=== PATIENT | female | born 1960 | race American Indian/Alaskan Native ===

== ENCOUNTER 2021-01-31 09:47 | Outpatient (CLI) | payer OTHER ==
--- NOTE | 2021-01-31 17:56 | Mammography Report ---
DIGITAL DIAGNOSTIC MAMMOGRAM WITH CAD , 01/31/2021 CLINICAL INFORMATION / INDICATION: Abnormal outside mammogram. Outside mammogram dated 09/25/2020 descr ibed an asymmetry in the right breast. A single screen saver of the abnormality in question showed a cervical demarcating a benign-appearing nodule in the superior right breast. Nothing was marked on th e cc view. TECHNIQUE: Digital right mammographic imaging was performed. This examination was interpreted with the benefit of Computer-aided Detection analysis. COMPARISON: Prior outside mammogram 09/25/2020, 06/12/2018 and 08/29/2011. FINDINGS: Breast Density: The breasts are heterogeneously dense, which may obscure small masses. The nodule in question persists on today's exam with features consistent with a benign intramammary lymph node. Thi s nodule was present on the 2018 and 2011 mammograms unchanged. IMPRESSION: No mammographic evidence of malignancy. The abnormality questioned on recent outside mamm ogram is proven to be a stable benign intramammary lymph node. Follow up recommendation: Back to schedule. BI-RADS Category 2: Benign. A "normal" or negative report should not discourage follow up or biopsy of a clinically significant f inding. A written summary of these findings will be mailed to the patient. The patient will be entered into a mammography reporting system which will generate a reminder letter for the patient's next appointmen t at the appropriate interval. According to the [employer], yearly mammograms are recommended starting at age 40 and continuing as long as a woman is in good health. Breast MRI is recommended for women with an abdi roximately 20-25% or greater lifetime risk of breast cancer, including women with a strong family his tory of breast or ovarian cancer and women who have been treated for Hodgkin's disease. Signer Name: Zoie Hong MD Signed: 01/31/2021 5:51 PM Workstation Name: [employer]
== END 2021-01-31 09:48 | disposition home or self-care (01) ==
LOC: MAMMO 09:47
PROVIDERS: ATTEND Family Medicine
DX: R92.8 Other abnormal and inconclusive findings on diagnostic imaging of breast (principal)